=== PATIENT | female | born 1955 | race Caucasian/White ===

== ENCOUNTER 2019-11-20 18:39 | Emergency (ER) | payer OTHER, MEDICARE, MEDICAID ==
[~2019-11-20] VITALS: Ht 167.6 cm; Wt 73.0 kg
[2019-11-20 18:44] VITALS: BP 168/106
[2019-11-20] MEDS ORDERED: IBUPROFEN 600MG TABLET PO STA (20:06)
== END 2019-11-20 21:33 | disposition home or self-care (01) ==
LOC: ER 18:39
DX: S16.1XXA Strain of muscle, fascia and tendon at neck level, initial encounter (principal); M25.511 Pain in right shoulder; E11.9 Type 2 diabetes mellitus without complications; I10 Essential (primary) hypertension; V43.62XA Car passenger injured in collision with other type car in traffic accident, initial encounter; Y93.9 Activity, unspecified; Y92.410 Unspecified street and highway as the place of occurrence of the external cause
CPT/HCPCS: 73030; 99284